=== PATIENT | male | born 1995 | race Caucasian/White ===

== ENCOUNTER 2017-07-21 17:05 | Emergency (ER) | payer BC ==
[2017-07-21 17:21] VITALS: BP 104/79; PULSE 88; O2SAT 98
--- NOTE | 2017-07-21 17:54 | ERPHSYRPT ---
- History of Present Illness Time Seen by Provider: 07/21/17 17:47 Source: patient, family Exam Limitations: no limitations Patient Subjective Stated Complaint: puncture wound to top of right hand from a dog bite Triage Nursing Assessment: pt to er c/o right hand wound from a dog bite, bleeding controlled, Physician History: The patient is a right-handed 21-year-old male with family complaining that a dog bit him on the top of his right hand while mowing a yard. The dog belonged to the neighbor of the yard that was being mowed. The patient's tetanus vaccination is 6-7 years old. The Police Department had brought in a certificate of vaccination of the dog and the last rabies vaccination was April 2017. Vaccination for rabies is up-to-date. The past medical history of the patient is unremarkable. Timing/Duration: today, hour(s) (1), gradual onset Quality: painful Severity: mild Location: hands (right) Possible Causes: other (dog bite) Associated Symptoms: denies symptoms Allergies/Adverse Reactions: Sulfa (Sulfonamide Antibiotics) Allergy (Verified 07/21/17 17:21) Hx Tetanus, Diphtheria Vaccination/Date Given: No (6-7 years) Hx Influenza Vaccination/Date Given: No Hx Pneumococcal Vaccination/Date Given: No - Review of Systems Constitutional: No Fever, No Chills Eyes: No Symptoms Ears, Nose, & Throat: No Symptoms Respiratory: No Cough, No Dyspnea Cardiac: No Chest Pain, No Edema, No Syncope Abdominal/Gastrointestinal: No Abdominal Pain, No Nausea, No Vomiting, No Diarrhea Genitourinary Symptoms: No Dysuria Musculoskeletal: No Back Pain, No Neck Pain Skin: Other (dog bite) Neurological: No Dizziness, No Focal Weakness, No Sensory Changes Psychological: No Symptoms Endocrine: No Symptoms Hematologic/Lymphatic: No Symptoms Immunological/Allergic: No Symptoms All Other Systems: Reviewed and Negative - Past Medical History Pertinent Past Medical History: No - Past Surgical History Past Surgical History: No - Social History Smoking Status: Never smoker Exposure to second hand smoke: No Drug Use: none Patient Lives Alone: No - Nursing Vital Signs Nursing Vital Signs: Initial Vital Signs Temperature 97.5 F 07/21/17 17:12 Pulse Rate 88 07/21/17 17:12 Respiratory Rate 20 07/21/17 17:12 Blood Pressure 104/79 07/21/17 17:12 O2 Sat by Pulse Oximetry 98 07/21/17 17:12 Pain Scale Pain Intensity 0 - Physical Exam General Appearance: no apparent distress, alert Eye Exam: PERRL/EOMI, eyes nml inspection Ears, Nose, Throat Exam: normal ENT inspection, pharynx normal, moist mucous membranes Neck Exam: normal inspection, non-tender, supple, full range of motion Respiratory Exam: normal breath sounds, lungs clear, No respiratory distress Cardiovascular Exam: regular rate/rhythm, normal heart sounds Gastrointestinal/Abdomen Exam: soft, mass, No tenderness Rectal Exam: not done Back Exam: normal inspection, normal range of motion, No CVA tenderness, No vertebral tenderness Extremity Exam: normal inspection, normal range of motion Neurologic Exam: alert, oriented x 3, cooperative, normal mood/affect, sensation nml, No motor deficits Skin Exam: laceration (1.5 cm linear laceration to back of right hand.) SpO2 Interpretation: normal SpO2: 98 Oxygen Delivery: Room Air Procedures - Laceration/Wound Repair Right Dorsal Hand Wound Location: Right, hand Wound Length (cm): 1.5 Wound's Depth, Shape: superficial, linear, contused tissue Wound Explored: no foreign body noted Irrigated: Yes Hibiclens Prep: Yes Anesthesia: local, 1% Lidocaine Volume Anesthetic (ccs): 7 Wound Repaired With: sutures Suture Size/Type: 5-0, ethilon Number of Sutures: 3 Layer Closure?: No Sterile Dressing Applied?: Yes Ordered Tests: Active Orders 24 hr Category Date Time Status IV Insertion STAT Care 07/21/17 17:59 Active Wound Care STAT Care 07/21/17 17:57 Active Medication Summary Discontinued Medications Generic Name Dose Route Start Last Admin Trade Name Freq PRN Reason Stop Dose Admin Diphtheria/Tetanus/Acell Pertussis 0.5 ml 07/21/17 17:57 07/21/17 18:44 Adacel Vial IM 07/21/17 17:58 0.5 ml .ONCE ONE Administration Diphtheria/Tetanus/Acell Pertussis Confirm 07/21/17 18:42 Adacel Vial Administered 07/21/17 18:43 Dose 0.5 ml IM .STK-MED ONE Ampicillin Sodium/Sulbactam Sodium 3 gm in 100 mls @ 200 mls/hr 07/21/17 17: 59 07/21/17 18:43 Unasyn 3gm / Nacl 100ml IV 07/21/17 18:28 200 mls/hr STAT STA 200 mls/hr Administration Ampicillin Sodium/Sulbactam Sodium Confirm 07/21/17 18:39 Unasyn 3gm / Nacl 100ml Administered 07/21/17 18:40 Dose 3 gm in 100 mls @ ud .ROUTE .STK-MED ONE Lidocaine HCl 10 ml 07/21/17 17:57 07/21/17 18:45 Xylocaine 1% Hcl 20 Ml Mdv IJ 07/21/17 17:58 10 ml STAT ONE Administration - Progress Progress: improved Counseled pt/family regarding: diagnosis, need for follow-up - Departure Time of Disposition: 19:11 Departure Disposition: Home Clinical Impression: Dog bite Condition: Stable Critical Care Time: No Referrals: ARNOL MILLAN [Primary Care Provider] - Additional Instructions: You were bitten on your right hand by a dog. The laceration was repaired with 3 sutures. You were given a tetanus vaccination. You also received Unasyn 3 g by IV in the ER. Take Augmentin 875 two times a day for 10 days. Take Tylenol and ibuprofen as needed for pain. Apply ice to the area as needed. Expect some bruising to the area. Have the sutures removed in 12 days by her primary medical doctor. If you have significant problems with the hand in the next few days, please see a hand surgeon for further evaluation. Prescriptions: Amoxicillin/Potassium Clav [Augmentin 875-125 Tablet] 875 mg PO BID #20 tablet
[2017-07-21] MEDS ORDERED: Unasyn 3GM / NaCl 100ML 3 GM/100 ML IVPB ONE (18:39)
[2017-07-21] MEDS ORDERED: Adacel Vial IM ONE (18:42)
[2017-07-21] MEDS: Unasyn 3GM / NaCl 100ML 3 GM/100 ML IVPB IV STA (18:43)
[2017-07-21] MEDS: Adacel Vial IM ONE (18:44)
[2017-07-21] MEDS: XYLOCAINE 1% HCL 20 ML MDV IJ ONE (18:45)
== END 2017-07-21 19:25 | disposition home or self-care (01) ==
LOC: ED 17:05
DX: S61.431A Puncture wound without foreign body of right hand, initial encounter (principal); W54.0XXA Bitten by dog, initial encounter; Y93.89 Activity, other specified; Y92.096 Garden or yard of other non-institutional residence as the place of occurrence of the external cause; Y99.0 Civilian activity done for income or pay
CPT/HCPCS: 12001; 36000; 90471; 90715; 96365; 96372; 96374; 99284; J0295

== ENCOUNTER 2020-01-05 14:54 | Emergency (ER) | payer BC ==
[2020-01-05] MEDS ORDERED: Ativan 2 MG/1 ML VIAL IV ONE (15:09)
[2020-01-05] MEDS ORDERED: Ativan 2 MG/1 ML VIAL ONE (15:09)
[2020-01-05] MEDS ORDERED: Sodium Chloride 0.9% 1000 ML 1,000 ML ONE (15:09)
[2020-01-05] MEDS ORDERED: Sodium Chloride 0.9% 1000 ML 1,000 ML IV STA (15:09)
[2020-01-05] MEDS ORDERED: BABY ASPIRIN 81 MG CHEW PO ONE (15:13)
[2020-01-05] MEDS ORDERED: BABY ASPIRIN 81 MG CHEW ONE (15:16)
[2020-01-05 15:22] LABS: Absolute Neutrophil Ct (ANC) 5.61 (1.4-6.9); BASOPHIL % 0.5 % (0.0-0.4); Basophil (Absolute #) 0.04 (0-0.4); Eosinophil (Absolute #) 0.17 (0-0.5); Hemoglobin 16.3 gm/dl (12.5-18.0); Lymphocyte (Absolute #) 1.89 (1.0-4.6); Mean Cell Volume 92.7 fl (78-100); Mean Corpuscular Hemoglobin 32.1 pg (26-32); Mean Corpuscular Hgb Concent. 34.7 g/dl (32-36); Mean Platelet Volume 10.4 fl (7.5-11.0); Monocytes % 10.5 % (0.0-12.0); Platelet Count 292 K/mm3 (150-450); Red Blood Count 5.07 M/mm3 (4.1-5.6); Red Cell Distribution Width 11.9 % (11.5-14.0); White Blood Count 8.6 K/mm3 (4.0-10.5)
[2020-01-05 15:34] LABS: ALBUMIN 5.2 g/dL (3.5-5.0); ALKALINE PHOSPHATASE 68 U/L (38-126); ANION GAP 13.5 MEQ/L (5-15); BLOOD UREA NITROGEN 16 mg/dL (9-20); CHLORIDE 104 mmol/L (98-107); Calcium 10.4 mg/dL (8.4-10.2); Carbon Dioxide 24 mmol/L (22-30); Creatinine 1 1.09 mg/dL (0.66-1.25); EST GLOMERULAR FILTRATION RATE > 60.0 ML/MIN; Glucose 109 mg/dL (74-106); MAGNESIUM 1.9 mg/dL (1.6-2.3); NT PRO BNP < 11.1 pg/mL (0-450); Potassium 4.2 mmol/L (3.5-5.1); SGOT/AST 36 U/L (17-59); SGPT/ALT 29 U/L (0-50); SODIUM 137 mmol/L (137-145); Total Protein 8.6 g/dL (6.3-8.2)
[2020-01-05 15:37] LABS: Amphetamine,Urine NEGATIVE (NEGATIVE); Barbiturate,Urine NEGATIVE (NEGATIVE); Benzodiazepine,Urine NEGATIVE (NEGATIVE); Cocaine,Urine NEGATIVE (NEGATIVE); Methadone,Urine NEGATIVE (NEGATIVE); Opiate,Urine NEGATIVE (NEGATIVE); PCP,Urine NEGATIVE (NEGATIVE); THC,Urine NEGATIVE (NEGATIVE)
--- NOTE | 2020-01-05 15:43 | ERPHSYRPT ---
- History of Present Illness Time Seen by Provider: 01/05/20 15:00 Source: patient, family Exam Limitations: no limitations Patient Subjective Stated Complaint: palpitations, tachycardia Triage Nursing Assessment: pt to ED c/o tachycardia, palpitations, anxiousness, diaphoresis onset noon today. states he had pre workout this am 0800 and then did not work out, but takes pre workout regularly. denies pain at this time. pulses palpable and regular, heart sounds clear. lungs clear and equal bilaterally. Physician History: 24 years old male with history of paroxysmal atrial fibrillation in the past, not taking any medications presented in the ER with chief complaint of palpitations for the last 3 hours. Patient reports he took preworkout but did not do any exercise later started to have sudden onset palpitations with feeling a little dizzy and lightheaded earlier which is improved now. He still have palpitations but denies any shortness of breath or chest pain/tightness or pressure. Denies any recent fever chills or cough. Denies any sick contact. Denies any history of drug abuse. Timing/Duration: hour(s) (3), sudden, worse Severity: moderate Modifying Factors: Improves With: nothing Associated Symptoms: No abdominal pain, No shortness of breath, No heartburn, No cough, No chest pain, No weakness Allergies/Adverse Reactions: Sulfa (Sulfonamide Antibiotics) Allergy (Verified 01/05/20 14:57) Home Medications: No Reportable Medications [No Reported Medications] 01/05/20 [History] Hx Tetanus, Diphtheria Vaccination/Date Given: No (6-7 years) Hx Influenza Vaccination/Date Given: No Hx Pneumococcal Vaccination/Date Given: No Travel Risk - International Travel Have you traveled outside of the country in past 3 weeks: No - Coronavirus Screening Are you exhibiting any of the following symptoms?: No Close contact with a COVID-19 positive Pt in past 14-21 Days: No - Review of Systems Constitutional: No Symptoms Eyes: No Symptoms Ears, Nose, & Throat: No Symptoms Respiratory: No Symptoms Cardiac: Palpitations Abdominal/Gastrointestinal: No Symptoms Genitourinary Symptoms: No Symptoms Musculoskeletal: No Symptoms Skin: No Symptoms Neurological: No Symptoms Psychological: Anxiety Endocrine: No Symptoms Hematologic/Lymphatic: No Symptoms Immunological/Allergic: No Symptoms - Past Medical History Pertinent Past Medical History: Yes Cardiac History: Arrhythmia - Past Surgical History Past Surgical History: No - Social History Smoking Status: Never smoker Exposure to second hand smoke: No Drug Use: none Patient Lives Alone: No - Nursing Vital Signs Nursing Vital Signs: Initial Vital Signs Temperature 99.6 F 01/05/20 14:58 Pulse Rate 120 H 01/05/20 14:58 Respiratory Rate 21 01/05/20 14:58 Blood Pressure 137/101 01/05/20 14:58 O2 Sat by Pulse Oximetry 100 01/05/20 14:58 Pain Scale Pain Intensity 0 - Physical Exam General Appearance: no apparent distress, alert, anxiety Eye Exam: PERRL/EOMI, eyes nml inspection Ears, Nose, Throat Exam: normal ENT inspection, TMs normal, pharynx normal Neck Exam: normal inspection, non-tender, supple, full range of motion Respiratory Exam: normal breath sounds, lungs clear Cardiovascular Exam: normal heart sounds, tachycardia Gastrointestinal/Abdomen Exam: soft, normal bowel sounds, No tenderness Back Exam: normal inspection, normal range of motion Extremity Exam: normal inspection, normal range of motion Neurologic Exam: alert, oriented x 3, cooperative, ground transportation operator II-XII nml as tested, nml cerebellar function, nml station & gait, sensation nml, No motor deficits, No sensory deficit Skin Exam: normal color SpO2 Interpretation: normal SpO2: 100 O2 Delivery: Room Air - Course Nursing assessment & vital signs reviewed: Yes EKG Interpreted by Me: RATE (93), Sinus Rhythm, NORMAL AXIS, NORMAL INTERVALS, ST Elev (Repolarization changes in anterolateral leads /J-point elevations), Other Ordered Tests: Medication Summary Discontinued Medications Generic Name Dose Route Start Last Admin Trade Name Raymundo PRN Reason Stop Dose Admin Aspirin 324 mg 01/05/20 15:13 01/05/20 15:18 Baby Aspirin 81 Mg Chew PO 01/05/20 15:14 324 mg STAT ONE Administration Aspirin Confirm 01/05/20 15:16 Baby Aspirin 81 Mg Chew Administered 01/05/20 15:17 Dose 324 mg .ROUTE .STK-MED ONE Sodium Chloride Confirm 01/05/20 15:09 Sodium Chloride 0.9% 1000 Ml Administered 01/05/20 15:10 Dose 1,000 mls @ ud .ROUTE .STK-MED ONE Sodium Chloride 1,000 mls @ 999 mls/hr 01/05/20 15:09 01/05/20 16:21 Sodium Chloride 0.9% 1000 Ml IV 01/05/20 16:09 Infused .Q1H1M STA Infusion Lorazepam Confirm 01/05/20 15:09 Ativan 2 Mg/1 Ml Vial Administered 01/05/20 15:10 Dose 2 mg .ROUTE .STK-MED ONE Lorazepam 1 mg 01/05/20 15:09 01/05/20 15:17 Ativan 2 Mg/1 Ml Vial IV 01/05/20 15:10 1 mg STAT ONE Administration Lab/Rad Data: Laboratory Result Diagrams 01/05/20 15:10 01/05/20 15:10 Laboratory Results 01/05/20 01/05/20 01/05/20 Range/Units 17:56 15:15 15:10 WBC (4.0-10.5) K/mm3 RBC (4.1-5.6) M/mm3 Hgb (12.5-18.0) gm/dl Hct (42-50) % MCV (78-100) fl MCH (26-32) pg MCHC (32-36) g/dl RDW (11.5-14.0) % Plt Count (150-450) K/mm3 MPV (7.5-11.0) fl Gran % (36.0-66.0) % Eos # (Auto) (0-0.5) Absolute Lymphs (auto) (1.0-4.6) Absolute Monos (auto) (0.0-1.3) Lymphocytes % (24.0-44.0) % Monocytes % (0.0-12.0) % Eosinophils % (0.00-5.0) % Basophils % (0.0-0.4) % Absolute Granulocytes (1.4-6.9) Basophils # (0-0.4) D-Dimer (215-500) ng/mL Sodium (137-145) mmol/L Potassium (3.5-5.1) mmol/L Chloride (98-107) mmol/L Carbon Dioxide (22-30) mmol/L Anion Gap (5-15) MEQ/L BUN (9-20) mg/dL Creatinine (0.66-1.25) mg/dL Estimated GFR ML/MIN Glucose (74-106) mg/dL Calcium (8.4-10.2) mg/dL Magnesium (1.6-2.3) mg/dL Total Bilirubin (0.2-1.3) mg/dL AST (17-59) U/L ALT (0-50) U/L Alkaline Phosphatase (38-126) U/L Troponin I < 0.012 < 0.012 (0.000-0.034) ng/mL NT-Pro-B Natriuret Pep (0-450) pg/mL Serum Total Protein (6.3-8.2) g/dL Albumin (3.5-5.0) g/dL TSH 3rd Generation (0.47-4.68) mIU/L Urine Opiates Level NEGATIVE (NEGATIVE) Ur Methadone NEGATIVE (NEGATIVE) Urine Barbiturates NEGATIVE (NEGATIVE) Ur Phencyclidine (PCP) NEGATIVE (NEGATIVE) Urine Amphetamine NEGATIVE (NEGATIVE) U Benzodiazepine Level NEGATIVE (NEGATIVE) Urine Cocaine NEGATIVE (NEGATIVE) Urine Marijuana (THC) NEGATIVE (NEGATIVE) 01/05/20 01/05/20 01/05/20 Range/Units 15:10 15:10 15:10 WBC (4.0-10.5) K/mm3 RBC (4.1-5.6) M/mm3 Hgb (12.5-18.0) gm/dl Hct (42-50) % MCV (78-100) fl MCH (26-32) pg MCHC (32-36) g/dl RDW (11.5-14.0) % Plt Count (150-450) K/mm3 MPV (7.5-11.0) fl Gran % (36.0-66.0) % Eos # (Auto) (0-0.5) Absolute Lymphs (auto) (1.0-4.6) Absolute Monos (auto) (0.0-1.3) Lymphocytes % (24.0-44.0) % Monocytes % (0.0-12.0) % Eosinophils % (0.00-5.0) % Basophils % (0.0-0.4) % Absolute Granulocytes (1.4-6.9) Basophils # (0-0.4) D-Dimer < 215 L (215-500) ng/mL Sodium 137 (137-145) mmol/L Potassium 4.2 (3.5-5.1) mmol/L Chloride 104 (98-107) mmol/L Carbon Dioxide 24 (22-30) mmol/L Anion Gap 13.5 (5-15) MEQ/L BUN 16 (9-20) mg/dL Creatinine 1.09 (0.66-1.25) mg/dL Estimated GFR > 60.0 ML/MIN Glucose 109 H (74-106) mg/dL Calcium 10.4 H (8.4-10.2) mg/dL Magnesium 1.9 (1.6-2.3) mg/dL Total Bilirubin 0.60 (0.2-1.3) mg/dL AST 36 (17-59) U/L ALT 29 (0-50) U/L Alkaline Phosphatase 68 (38-126) U/L Troponin I (0.000-0.034) ng/mL NT-Pro-B Natriuret Pep < 11.1 (0-450) pg/mL Serum Total Protein 8.6 H (6.3-8.2) g/dL Albumin 5.2 H (3.5-5.0) g/dL TSH 3rd Generation 2.100 (0.47-4.68) mIU/L Urine Opiates Level (NEGATIVE) Ur Methadone (NEGATIVE) Urine Barbiturates (NEGATIVE) Ur Phencyclidine (PCP) (NEGATIVE) Urine Amphetamine (NEGATIVE) U Benzodiazepine Level (NEGATIVE) Urine Cocaine (NEGATIVE) Urine Marijuana (THC) (NEGATIVE) 01/05/20 Range/Units 15:10 WBC 8.6 (4.0-10.5) K/mm3 RBC 5.07 (4.1-5.6) M/mm3 Hgb 16.3 (12.5-18.0) gm/dl Hct 47.0 (42-50) % MCV 92.7 (78-100) fl MCH 32.1 H (26-32) pg MCHC 34.7 (32-36) g/dl RDW 11.9 (11.5-14.0) % Plt Count 292 (150-450) K/mm3 MPV 10.4 (7.5-11.0) fl Gran % 65.0 (36.0-66.0) % Eos # (Auto) 0.17 (0-0.5) Absolute Lymphs (auto) 1.89 (1.0-4.6) Absolute Monos (auto) 0.90 (0.0-1.3) Lymphocytes % 22.0 L (24.0-44.0) % Monocytes % 10.5 (0.0-12.0) % Eosinophils % 2.0 (0.00-5.0) % Basophils % 0.5 (0.0-0.4) % Absolute Granulocytes 5.61 (1.4-6.9) Basophils # 0.04 (0-0.4) D-Dimer (215-500) ng/mL Sodium (137-145) mmol/L Potassium (3.5-5.1) mmol/L Chloride (98-107) mmol/L Carbon Dioxide (22-30) mmol/L Anion Gap (5-15) MEQ/L BUN (9-20) mg/dL Creatinine (0.66-1.25) mg/dL Estimated GFR ML/MIN Glucose (74-106) mg/dL Calcium (8.4-10.2) mg/dL Magnesium (1.6-2.3) mg/dL Total Bilirubin (0.2-1.3) mg/dL AST (17-59) U/L ALT (0-50) U/L Alkaline Phosphatase (38-126) U/L Troponin I (0.000-0.034) ng/mL NT-Pro-B Natriuret Pep (0-450) pg/mL Serum Total Protein (6.3-8.2) g/dL Albumin (3.5-5.0) g/dL TSH 3rd Generation (0.47-4.68) mIU/L Urine Opiates Level (NEGATIVE) Ur Methadone (NEGATIVE) Urine Barbiturates (NEGATIVE) Ur Phencyclidine (PCP) (NEGATIVE) Urine Amphetamine (NEGATIVE) U Benzodiazepine Level (NEGATIVE) Urine Cocaine (NEGATIVE) Urine Marijuana (THC) (NEGATIVE) - Progress Progress: improved, re-examined Progress Note: 01/05/20 18:18 Ruled out ACS, pulmonary embolism, pneumonia, dissection. Patient is very anxious, given Ativan, feeling better on reevaluation. Does not have any fib flutter. Could be related to anxiety versus energy drink. Recommended outpatient follow-up with primary care and cardiology. Discussed signs symptoms of worsening needing return to ER which he seems understanding. Counseled pt/family regarding: lab results, diagnosis, need for follow-up, rad results - Departure Departure Disposition: Home Clinical Impression: Palpitations Condition: Stable Critical Care Time: No Referrals: DOCTOR,NO FAMILY [Primary Care Provider] - RICH BELLO MD [ACTIVE STAFF] - Follow Up with PCP/3 days YANET HICKEY [ACTIVE STAFF] - Follow Up with PCP/3 days Instructions: Arrhythmias (DC), Palpitations (DC) Additional Instructions: Do not take energy drinks. Follow-up with your primary care and machine cage maker for reevaluation in the next 3 to 4 days. Return to ER for any worsening pa lpitations or if you have chest pain or shortness of breath etc.
[2020-01-05 18:32] VITALS: BP 125/84; PULSE 103
--- NOTE | 2020-01-05 20:32 | XRAY ---
Indication: Tachycardia. Palpitations. Comparison: None Portable chest clear of focal infiltrate, consolidation, or large effusion. Heart and mediastinal structures within normal limits. Bony thorax intact. Impression: Nonacute chest.
[2020-01-08 21:02] VITALS: O2SAT 100
== END 2020-01-05 18:33 | disposition home or self-care (01) ==
LOC: ED 14:54
DX: R00.2 Palpitations (principal)
CPT/HCPCS: 36000; 36415; 71045; 80053; 80307; 83735; 83880; 84443; 84484; 85025; 85379; 93005; 93041; 96360; 96374; 99284; J2060; A9270-GY